=== PATIENT | female | born 1985 | race Caucasian/White ===

== ENCOUNTER 2019-05-09 12:21 | Emergency (ER) | payer MEDICAID ==
[~2019-05-09] VITALS: Ht 162.6 cm; Wt 78.9 kg
[2019-05-09 12:21] VITALS: BP_SYST 120
[2019-05-09] MEDS ORDERED: NS 1000 ML IV.SOLN IV ONE (13:00)
[2019-05-09 13:28] LABS: BASOPHILS # (AUTO) 0.1 K/uL (0.0-0.2); BASOPHILS % (AUTO) 0.6 % (0.0-2.0); EOSINOPHILS # (AUTO) 0.1 K/uL (0.0-0.4); EOSINOPHILS % (AUTO) 1.4 % (0.0-4.0); HEMATOCRIT 33.7 % (36-48); HEMOGLOBIN 10.8 g/dL (12.0-16.0); LYMPHOCYTES # (AUTO) 2.5 K/uL (1.0-5.5); LYMPHOCYTES % (AUTO) 28.2 % (20.5-51.5); MEAN CORPUSCULAR HEMOGLOBIN 25 pg (27-31); MEAN CORPUSCULAR HGB CONC 32 % (32-36); MEAN CORPUSCULAR VOLUME 79 fL (79.0-98.0); MONOCYTES # (AUTO) 0.6 K/uL (0.0-1.0); MONOCYTES % (AUTO) 7.2 % (1.7-9.3); NEUTROPHILS # (AUTO) 5.5 K/uL (1.8-7.7); NEUTROPHILS % (AUTO) 62.6 % (40.0-70.0); PLATELET COUNT (AUTO) 475 K/uL (130-430); RED BLOOD CELL COUNT(AUTO) 4.29 MIL/uL (4.2-6.2); RED CELL DISTRIBUTION WIDTH 15.6 % (9.0-15.0); WHITE BLOOD COUNT (AUTO) 8.8 K/uL (4.8-10.8)
--- NOTE | 2019-05-09 13:59 | NUR ---
Patient to ER bed 08 to gown for evaluation. Side rails up.
--- NOTE | 2019-05-09 14:02 | NUR ---
Pt brought by self,A&Ox4, pt presents to ER with upper abdominal pain and nausea , pt afebrile, denies constipatio or diarrhea, skin pink and warm, cap refill <3, VSS, respirations even and unlabored , no active vomiting noted at this time.
[2019-05-09 14:03] LABS: PROTHROMBIN TIME 10.3 SECS (9.5-12.5)
--- NOTE | 2019-05-09 14:45 | NUR ---
Dr Norris at bedside examining patient
[2019-05-09 14:49] LABS: CREATININE 0.65 mg/dL (0.55-1.30); POTASSIUM 4.2 mmol/L (3.5-5.1)
[2019-05-09 14:53] LABS: ALBUMIN 3.8 g/dL (3.4-4.8); TOTAL BILIRUBIN 0.1 mg/dL (0.0-1.0)
--- NOTE | 2019-05-09 14:55 | NUR ---
Pt continues with pain in the abdominal area at this time,Dr Norris notified.
[2019-05-09] MEDS ORDERED: MAG HYDROX/AL HYDROX/SIMETH 30 ML, DICYCLOMINE HCL 20 MG, LIDOCAINE VISCOUS 2% 15ML (PO... PO ONE ×3 (15:00)
[2019-05-09] MEDS ORDERED: LIDOCAINE VISCOUS 2%, 15 ML UDC ONE (15:11)
[2019-05-09] MEDS ORDERED: MAG-AL HYDROX/SIMETH 30 ML UDC ONE (15:11)
[2019-05-09] MEDS ORDERED: DICYCLOMINE HCL 10 MG/5 ML SOLUTION ONE (15:17)
[2019-05-09] MEDS ORDERED: ONDANSETRON HCL 4 MG/2 ML VIAL IVP ONE (16:30)
[2019-05-09] MEDS ORDERED: MORPHINE 4 MG/ML INJ. SYRINGE IVP ONE (16:30)
[2019-05-09 16:50] LABS: BILIRUBIN,URINE NEGATIVE (NEGATIVE); COLOR,URINE YELLOW (YELLOW); GLUCOSE,URINE NEGATIVE (NEGATIVE); KETONES,URINE NEGATIVE (NEGATIVE); LEUKOCYTE ESTERASE ,URINE NEGATIVE (NEGATIVE); NITRITE, URINE NEGATIVE (NEGATIVE); PROTEIN URINE NEGATIVE (NEGATIVE); UROBILINOGEN,URINE 0.2 (0.2-1.0)
[2019-05-09 16:56] LABS: BLOOD, URINE TRACE (NEGATIVE)
[2019-05-09] MEDS ORDERED: DIPHENHYDRAMINE INJ 50 MG/ML VIAL IVP ONE (17:00)
--- NOTE | 2019-05-09 17:00 | NUR ---
Rash noted in R arm after Zofran 4mg IVP, pt c/o itching , Dr Norris notified, order received for Benadryl 50mg IVP , medication well tolerated .
[2019-05-09 17:14] LABS: BACTERIA,URINE MODERATE /HPF (None Seen); MUCUS,URINE 2+ /LPF (None Seen); RBC,URINE 0-3 /HPF (0-3)
[2019-05-09 17:15] LABS: CLARITY/URINE CLEAR (CLEAR)
[2019-05-09 17:44] VITALS: BP_SYST 120
--- NOTE | 2019-05-09 17:46 | NUR ---
Patient given written and verbal discharge instructions and verbalizes understanding. ER MD discussed with patient the results and treatment provided. Patient in stable condition. ID arm band removed. IV catheter removed intact and dressing applied, no active bleeding. Rx of Donattal.Ranitidine,Zofran,Sucralfate given. Patient educated on pain management and to follow up with PMD. Pain Scale 2/10 tolerable for patient . Opportunity for questions provided and answered. Medication side effect fact sheet provided.
== END 2019-05-09 17:44 | disposition home or self-care (01) ==
LOC: SED 12:21
DX: K21.9 Gastro-esophageal reflux disease without esophagitis (principal)
CPT/HCPCS: 36415; 71045; 80053; 81000; 82150; 82550; 83605; 83690; 85025; 85610; 85730; 87040; 87086; 96361; 96374; 96375; 99284; J1200; J2001; J2270; J2405; J7030

== ENCOUNTER 2023-11-30 17:37 | Emergency (ER) | payer BC, MEDICAID ==
[~2023-11-30] VITALS: Ht 165.1 cm; Wt 81.6 kg
[2023-11-30 17:40] VITALS: BP_SYST 152; PULSE 72; RESP 18; TEMP 97.3; O2SAT 99
[2023-11-30] MEDS ORDERED: IBUP-1969 PO (19:41)
[2023-11-30] MEDS ORDERED: HYDR-3917 PO (19:41)
[2023-11-30] MEDS ORDERED: HYDROcodone/ACETAMIN 10-325 MG TAB PO ONE (19:45)
[2023-11-30 20:08] VITALS: BP_SYST 134; PULSE 67; RESP 18; TEMP 98; O2SAT 98
== END 2023-11-30 20:08 | disposition home or self-care (01) ==
LOC: SED 17:37
DX: S63.501A Unspecified sprain of right wrist, initial encounter (principal); S93.402A Sprain of unspecified ligament of left ankle, initial encounter; S80.02XA Contusion of left knee, initial encounter; S90.32XA Contusion of left foot, initial encounter; Z79.899 Other long term (current) drug therapy; W10.9XXA Fall (on) (from) unspecified stairs and steps, initial encounter; Y93.89 Activity, other specified; Y92.89 Other specified places as the place of occurrence of the external cause; Y99.8 Other external cause status
CPT/HCPCS: 73560-TC; 99284